=== PATIENT | male | born 1945 | race Caucasian/White ===

== ENCOUNTER 2017-04-18 07:18 | Emergency (ER) | payer OTHER ==
[~2017-04-18] VITALS: Ht 185.4 cm; Wt 79.4 kg
[~2017-04-18 07:18] MED LIST: APHEN325 MG PO; ASPIRIN EC81 M1 PO; ASPIRIN81 M2; TUMS PO; ZANTAC 150MG T150 M1 PO; ZZZQUIL25 MG PO
[2017-04-18] MEDS ORDERED: NORCO 5-325 TA1 EACH PO (08:29)
[2017-04-18] MEDS ORDERED: VALIUM2 MG PO (08:29)
== END 2017-04-18 09:10 | disposition home or self-care (01) ==
LOC: ER 07:18
DX: M76.32 Iliotibial band syndrome, left leg (principal); Z87.891 Personal history of nicotine dependence

== ENCOUNTER → 2021-09-10 | Outpatient (CLI) | payer OTHER ==
[~2021-09-10] MED LIST changes: +ACID REDUCER20 MG PO; +GLUCOPHAGE XR750 MG PO; +LIPITOR20 MG PO; +LISINOPRIL10 MG PO; +NORCO 5-325 TA1 EACH PO; +VALIUM2 MG PO; +VITAMIN D325 MC3 PO
== END ==
LOC: LAB 12:29
PROVIDERS: Student in an Organized Health Care Education/Training Program; ATTEND Specialist
DX: Z01.812 Encounter for preprocedural laboratory examination (principal); Z20.822 Contact with and (suspected) exposure to COVID-19

== ENCOUNTER → 2021-09-12 | Outpatient (CLI) | payer OTHER ==
[~2021-09-12] VITALS: Ht 182.9 cm; Wt 77.1 kg
--- NOTE | 2021-09-12 17:34 | P ---
[facility] [place] [address] PROCEDURE REPORT Name: FRANTZ WATSON Room #: [facility]#: [id number] Admission: 09/12/21 Attend Phys: Jose De Jesus Daily Discharge: Date of : 43 Report #: [id number] THIS REPORT FOR: cc: Alexandru Boothe James A. DO McElhinney, Christian C. MD ~ cc: Alexandru Boothe DO DATE OF SERVICE: 09/12/2021 PROCEDURE PERFORMED: Colonoscopy. HISTORY OF PRESENT ILLNESS: The patient is a 76-year-old male with a history of colon polyps 5 years ago, here for routine followup. Denies any symptoms. No family history of colon cancer. DESCRIPTION OF PROCEDURE: The risks and benefits of the procedure were explained to the patient, those risks including but not limited to bleeding, perforation and the risk of sedation. He understood these risks and gave informed consent. Sedation was given using propofol per anesthesia. Next, a digital rectal exam was initially performed, which showed a nodular prostate, otherwise normal. Next, using a standard Olympus colonoscope, the scope was placed in the patient's anus and advanced under direct vision to the cecum. The overall prep was adequate. Multiple washings and aspirations were performed in areas. The cecum and ileocecal valve were normal in appearance. The ascending and transverse colon were normal. A few scattered diverticula were noted in the descending and sigmoid colon. No evidence of inflammation, otherwise normal. The rectal mucosa was normal. On retroflexion, small nonbleeding internal hemorrhoids noted. The scope was then withdrawn and the procedure terminated. The patient tolerated the procedure well. IMPRESSION: 1. Left-sided diverticulosis. 2. Small internal hemorrhoids. 3. Otherwise, normal colonoscopy. RECOMMENDATIONS: Observe at this point. Thank you for allowing me to participate in his care. <ELECTRONICALLY SIGNED> By: Jose De Jesus Infante MD 09/12/21 1734 [id number] Jose De Jesus Infante MD /nt
== END | disposition home or self-care (01) ==
LOC: GI 06:53
PROVIDERS: ATTEND Specialist
DX: Z12.11 Encounter for screening for malignant neoplasm of colon (principal); Z86.010 Personal history of colon polyps; K57.30 Diverticulosis of large intestine without perforation or abscess without bleeding; K64.8 Other hemorrhoids; I12.9 Hypertensive chronic kidney disease with stage 1 through stage 4 chronic kidney disease, or unspecified chronic kidney disease; E11.22 Type 2 diabetes mellitus with diabetic chronic kidney disease; N18.30 Chronic kidney disease, stage 3 unspecified; E78.5 Hyperlipidemia, unspecified; Z98.890 Other specified postprocedural states; Z79.899 Other long term (current) drug therapy; Z85.820 Personal history of malignant melanoma of skin; Z87.891 Personal history of nicotine dependence
CPT/HCPCS: 62110; 62900